=== PATIENT | female | born 1965 | race African-American/Black ===

== ENCOUNTER 2018-01-07 15:32 | Emergency (ER) | payer MEDICAID ==
[~2018-01-07] VITALS: Ht 165.1 cm; Wt 110.0 kg
[~2018-01-07 15:32] MED LIST: AMLODIPINE; HCTZ; METOPROLOL; NITROSTAT
[2018-01-07] MEDS ORDERED: PREDNISONE 20MG TABLET PO STA (20:26)
[2018-01-07] MEDS ORDERED: IPRATROPIUM BROMIDE (0.02%) 0.5MG/2.5ML NEB HHN STA (20:26)
[2018-01-07] MEDS ORDERED: ALBUTEROL (0.083%) 2.5MG/3ML NEB HHN STA (20:26)
[2018-01-07 21:19] LABS: BASOPHILS % 0.8 % (0.0-2.0); EOSINOPHILS % 0.7 % (0.0-5.0); HEMOGLOBIN. 12.1 g/dL (12.0-16.0); LYMPHOCYTES % 49.5 % (20.0-50.0); MEAN CORPUSCULAR HEMOGLOBIN 29.8 pg (28.0-32.0); MEAN PLATELET VOLUME 8.5 fl (7.4-10.4); MONOCYTES % 9.4 % (2.0-8.0); NEUTROPHILS % 39.6 % (40.0-76.0); PLATELET 381 x1000/uL (130-400); RED BLOOD CELL COUNT 4.07 mill/uL (4.2-5.4); RED CELL DISTRIBUTION WIDTH 13.7 % (11.6-14.6)
[2018-01-07 21:25] LABS: CHLORIDE 99 mEq/L (98-107)
[2018-01-07 21:56] VITALS: BP 124/78
== END 2018-01-07 22:36 | disposition home or self-care (01) ==
LOC: ER 15:32
DX: J06.9 Acute upper respiratory infection, unspecified (principal); J45.901 Unspecified asthma with (acute) exacerbation; R11.0 Nausea; R19.7 Diarrhea, unspecified; I10 Essential (primary) hypertension; Z88.2 Allergy status to sulfonamides; Z88.8 Allergy status to other drugs, medicaments and biological substances
CPT/HCPCS: 36415; 71045; 80048; 85025; 94640; 99285; J7512; J7611